=== PATIENT | female | born 1975 | race Caucasian/White ===

== ENCOUNTER → 2016-06-03 | Outpatient (CLI) | payer OTHER, MEDICARE | LOC: KOH-I 11:00 | DX: R10.0 Acute abdomen (principal) | CPT/HCPCS: 76705 ==

== ENCOUNTER → 2016-07-18 | Outpatient (CLI) | payer OTHER, MEDICARE | LOC: KOH-I 13:01 | DX: R04.2 Hemoptysis (principal) | CPT/HCPCS: 71020 ==